=== PATIENT | female | born 1975 | race Caucasian/White ===

== ENCOUNTER 2022-06-25 20:28 | Emergency (ER) | payer BC, SELFPAY ==
[2022-06-25] VITALS (16 sets, daily range): BP systolic 115–130; BP diastolic 70–81; PULSE 96–146; RESP 16–45; TEMP 36.4–37.1; O2SAT 95–100
--- NOTE | ~2022-06-25 | CT_ITS ---
EXAMINATION: CT brain wo con DATE: 06/25/2022 21:40 INDICATION: Syncope intermittent uncontrollable shaking. TECHNIQUE: Computed tomography (CT) of the abdomen was performed without intravenous contrast. Automa marysol exposure control and iterative reconstruction technique were employed. Exam dose: 605.33 mGy-cm total exam DLP. COMPARISON: None. FINDINGS: No intracranial mass lesion or hemorrhage or cerebrovascular accident. No midline shift or mass effect. Normal ventricular size. No subdural or epidural hematoma. Very prominent opacification of the left sphenoid sinus. The included paranasal sinuses and mastoid a ir cells are otherwise unremarkable. No fracture or bone destruction of the cranial vault. IMPRESSION: No intracranial abnormality Prominent soft tissue thickening of the right sphenoid sinus Reviewed, dictated and finalized at [facility]. Reviewed, dictated and finalized at [facility].
--- NOTE | ~2022-06-25 | XR_ITS ---
XR chest 1V portable DATE: 06/25/2022 21:24 INDICATION: Dizziness. Weakness, tremors TECHNIQUE: Portable AP chest on 06/25/2022 and 2120 hours COMPARISON: None FINDINGS: Normal heart size. No hilar or mediastinal enlargement. Bilateral hyperinflation. No pulmon iftikhar infiltrate or consolidation, pleural effusion or pulmonary vascular congestion or pneumothorax. Mild levoscoliosis of the upper thoracic spine and mild dextroscoliosis of the lower thoracic spine. IMPRESSION: Bilateral hyperinflation; otherwise no active cardiopulmonary disease Reviewed, dictated and finalized at [facility]. IMPRESSION: Bilateral hyperinflation; otherwise no active cardiopulmonary disea se
--- NOTE | 2022-06-25 20:44 | PC.NURSE ---
pt having shaking episode in wheel chair in waiting room, pt fully awake, a&ox4, no acute distress or SOB, airway patent, breathing even/unlabored. pt legs shaking uncontrollably.
--- NOTE | 2022-06-25 21:13 | ECG_ITS ---
Measurements Intervals [place] Rate: 107 P: 64 CA: 160 QRS: 54 QRSD: 65 T: 72 QT: 329 QTc: 440 Interpretive Statements SINUS TACHYCARDIA POSSIBLE LEFT ATRIAL ENLARGEMENT CANNOT RULE OUT SEPTAL INFARCT, AGE INDETERMINATE BASELINE ARTIFACT- I, II, III, AVR, AVL, AVF ABNORMAL ECG NO PREVIOUS ECG AVAILABLE FOR COMPARISON Electronically Signed On 06-26-2022 15:43:28 CDT by Filipe Tobias D.O.
[2022-06-25 21:51] LABS: Basophils Percent Auto 0.4 % (0.2-1.2); Eosinophils Absolute Auto 0.1 K/mm3 (0-0.3); Eosinophils Percent Auto 0.6 % (0-4.4); Hemoglobin 12.9 g/dL (12.0-15.0); Immature Granulocyte Absolute 0.04 K/mm3 (0.00-0.031); Immature Granulocyte Percent A 0.4 % (0-0.5); Lymphocytes Absolute Auto 1.32 K/mm3 (0.9-3.2); Lymphocytes Percent Auto 13.3 % (18.3-44.2); Mean Corpuscular HGB Conc 33.9 g/dl (32-36); Mean Corpuscular Hemoglobin 33.6 pg (26-34); Mean Platelet Volume 8.9 fl (7.4-10.4); Monocytes Absolute Auto 0.9 K/mm3 (0.1-0.6); Monocytes Percent Auto 9.5 % (2.6-8.5); Neutrophils Absolute Auto 7.5 K/mm3 (1.3-6.7); Neutrophils Percent Auto 75.8 % (45.5-73.1); Platelet Count Result 243 k/mm3 (150-375); Red Blood Count 3.84 M/mm3 (4.2-5.4); Red Cell Distribution Width 13.8 % (11.5-14.5); White Blood Count 9.9 K/mm3 (4.5-10.0)
[2022-06-25 21:58] LABS: INR 1.1; Prothrombin Time 13.7 Seconds (11.1-14.7)
[2022-06-25 21:59] LABS: Partial Thromboplastin Time 26.7 SECONDS (22.3-36.8)
[2022-06-25 22:07] LABS: Alanine Aminotransferase 23 U/L (6-35); Albumin Level 4.5 g/dL (3.5-5.1); Alkaline Phosphatase 68 U/L (38-126); Anion Gap 10 mmol/L (8-16); Aspartate Amino Transferase 30 U/L (14-36); Bilirubin,Total 0.5 mg/dL (0.2-1.3); Blood Urea Nitrogen 18 mg/dL (7-17); Calcium 8.9 mg/dL (8.4-10.2); Carbon Dioxide 23 mmol/L (22-30); Chloride 106 mmol/L (98-107); Estimated CRCL calculation 67 ml/min; Estimated Glomerular Filt Rate > 60; Glucose 109 mg/dL (65-110); Lactic Acid Reflex 0.9 mmol/L (0.7-2.0); Potassium 3.4 mmol/L (3.4-5.0); Sodium 139 mmol/L (137-145)
[2022-06-25 22:08] LABS: Ethanol < 10 mg/dL (<10)
[2022-06-25] MEDS: SODIUM CHLORIDE 0.9% IV 1,000 ML 999 ML IV CONT (22:13)
[2022-06-25 22:18] LABS: Troponin I < 0.012 ng/mL (0.000-0.034)
[2022-06-25 22:24] LABS: Appearance Urine Cloudy (Clear); Bacteria Urine 3+ /hpf; Bilirubin Urine Negative (Negative); Blood Urine Negative (Negative); Color Urine Yellow (Yellow); Glucose Urine UA Negative (Negative); Ketones Urine Negative (Negative); Leukocyte Esterase Ur Trace LEU/UL (Negative); Nitrate Urine Negative (Negative); Non Pathogenic Casts 0-2; Protein Urine Trace mg/dL (Negative); RBC Urine 0-2 /hpf (0-2); Specific Grav Ur 1.016 (1.001-1.035); Squamous Epithelial Cell Urine Many /hpf (Few); Urobilinogen Urine 0.2 mg/dL (<2.0); WBC Urine 21-50 /hpf
[2022-06-25 22:34] LABS: Add Urine Microscopic? YES
--- NOTE | 2022-06-25 23:00 | PC.NURSE ---
RN assumed care of pt from Jenna SANCHEZ.
--- NOTE | 2022-06-25 23:16 | ED.GENADULT ---
HPI - General Adult General Chief complaint: Seizure Stated complaint: possible seizure Time Seen by Provider: 06/25/22 20:57 History of Present Illness HPI narrative: Patient is a 46-year-old female who presents the emergency department with chief complaint of possible seizure. The patient states that she has been taking a new supplement that she has been getting off of head CT and reports that she also has use of marijuana today the patient states that she was at [employer] started feeling very lightheaded and felt as though she was going to pass out the patient states that she had some jerking movements in her arms when this happened and her eyes were flickering. Patient did not fall to the ground had no bowel or bladder dysfunction or lack of control. Patient states that she has had no trauma denies chest pain or shortness of breath. Related Data Home Medications Medication Instructions Recorded Confirmed apixaban 5 mg tablet (Eliquis) 5 mg 06/26/22 hydrocodone 10 mg-acetaminophen 10 tablet 06/26/22 325 mg tablet topiramate 50 mg tablet 50 mg 06/26/22 Allergies Allergy/AdvReac Type Severity Reaction Status Date / Time No Known Allergies Allergy Verified 06/25/22 20:29 Review of Systems Review of Systems: A 10 system review of systems was completed on the patient and is negative except for what is stated in the HPI. Nursing and ancillary documentation was reviewed. Exam Narrative: GENERAL: Well-appearing, well-nourished, and in no acute distress. HEAD: Normocephalic, atraumatic. EYES: PERRLA and EOMI. ENT: Nares clear, no rhinorrhea or epistaxis. Mucous membranes moist. NECK: Supple. CHEST: Clear to auscultation. No respiratory distress. HEART: Regular rate and rhythm. No murmur heard. Normal peripheral pulses. ABDOMEN: Soft, nontender, nondistended, normal active bowel sounds. EXTREMITIES: Normal range of motion. No edema. SKIN: Warm, dry, no rash. NEURO: No focal deficits. Alert and oriented x3. PSYCH: Normal mood and affect. Course Vital Signs Vital signs: Vital Signs Temperature 36.4 C 06/25/22 20:33 Pulse Rate 106 H 06/25/22 20:33 Respiratory Rate 16 06/25/22 20:33 Blood Pressure 130/73 06/25/22 20:33 Pulse Oximetry 100 06/25/22 20:33 Oxygen Delivery Room Air 06/25/22 20:33 Temperature 37.1 C 06/25/22 23:55 Pulse Rate 99 06/25/22 23:55 Respiratory Rate 16 06/25/22 23:55 Blood Pressure 115/70 06/25/22 23:55 Pulse Oximetry 100 06/25/22 23:55 Oxygen Delivery Room Air 06/25/22 21:03 Medical Decision Making MDM Narrative Medical decision making narrative: Differential diagnosis includes seizure, reaction to marijuana reaction to herbal supplement. Electrolyte abnormality syncope cardiogenic causes dysrhythmia CT head showed no evidence of acute abnormality, chest x-ray showed no acute abnormality Laboratory studies were obtained which showed a normal lactic acid the patient did have a slight urinary tract infection will be treated with oral antibiotics CBC showed a white count of 9.9 toxicology screen showed positive for opiates which the patient does take [place], she was positive for amphetamines was the patient is unsure how she could have become exposed amphetamines and the patient was positive for cannabinoids which the patient does report that she uses marijuana that is commercially of pain through dispensary EtOH was negative Vital Signs Vital Signs: Vital Signs Temperature 36.4 C 06/25/22 20:33 Pulse Rate 106 H 06/25/22 20:33 Respiratory Rate 16 06/25/22 20:33 Blood Pressure 130/73 06/25/22 20:33 Pulse Oximetry 100 06/25/22 20:33 Oxygen Delivery Room Air 06/25/22 20:33 Temperature 37.1 C 06/25/22 23:55 Pulse Rate 99 06/25/22 23:55 Respiratory Rate 16 06/25/22 23:55 Blood Pressure 115/70 06/25/22 23:55 Pulse Oximetry 100 06/25/22 23:55 Oxygen Delivery Room Air 06/25/22 21:03 Lab Data
[2022-06-25 23:19] LABS: Amphetamine Screen Urine Positive (Negative); Barbiturate Screen Urine Negative (Negative); Benzodiazepines Screen Urine Negative (Negative); Cannabinoid Screen Urine Positive (Negative); Cocaine Screen Urine Negative (Negative); Methadone Screen Urine Negative (Negative); Opiate Screen Urine Positive (Negative); Phencyclidine Screen Urine Negative (Negative)
--- NOTE | 2022-06-25 23:31 | PC.NURSE ---
Report given to LAURA Whitney and LAURA Matt.
[2022-06-26 00:56] VITALS: BP 117/79; PULSE 84; RESP 17; O2SAT 100
== END 2022-06-26 00:54 | disposition home or self-care (01) ==
PROVIDERS: Emergency Provider Emergency Medicine
DX: R55 Syncope and collapse (principal); N39.0 Urinary tract infection, site not specified; F12.90 Cannabis use, unspecified, uncomplicated
CPT/HCPCS: 36415; 70450; 71045; 80053; 80307; 81001; 83605; 83735; 84484; 85025; 85610; 85730; 87077; 87086; 87088; 93005; 96360; 99284; J7030